=== PATIENT | female | born 2005 | race Asian ===

== ENCOUNTER 2024-10-16 06:34 | Outpatient (REF) | payer OTHER, SELFPAY ==
--- OUTSIDE RECORDS SUMMARY | 2024-10-16 06:37 | XMS_ITS | Data Portability ---
Author Organization [place] - [facility] Address [address] [place] [address] Care Team Providers Care Weight Count Operator Name Role Phone SABIHA ZACARIAS Primary Care Provider Unavailabl e Assessment Encounter Date Assessment Date Assessment LastModified by Organization Details LastModified Time 06/18/2022 06/18/2022 Agree with kash-Max Livingston M.D. [email or web address] Not available 06/18/2022 23:29:27 06/27/2023 06/27/2023 I was present in the office at the time of visit. History and physical reviewed. Agree that the assessment and plan below is reasonable. Jesus Zacarias MD [email or web address] Not available 06/28/2023 09:14:03 07/13/2024 07/13/2024 Agree with Reta Livingston M.D. Not available 07/14/2024 07:29:56 Plan of Treatment Reminders Order Date Submit Date Provider Last Modified By Organization Details Last Modified Time Details Appointments Physical3 0 2025 03:30P M Amy Cronin N.P. Not available Not available Not available Lab Chlamydia trachomat is+Neisse ika gonorrhoe ae DNA, unspecifi ed specimen [address] - Lab, [address] [place] [address], [id number], 07/20/2024 09:03:42 lipid panel, serum 2023 024 [facility] - Lab, [address] [place] [address] [place], [address], 07/04/2023 14:08:12 HbA1c (hemoglob in A1c), blood 2023 024 [facility] - Lab, [address] [place] [address] [place], [address], 07/04/2023 14:08:52 TSH, serum, reflex free T4 2023 024 [facility] - Lab, [address] [place] [address], [id number], 07/04/2023 14:08:13 CBC 2023 024 [facility] [place] [facility], [address] [place], [address], 06/27/2023 15:54:40 Chlamydia trachomat is+Neisse kia gonorrhoe ae DNA, unspecifi ed specimen 2023 024 [facility] [place] [facility], [address] [place], [address], 06/27/2023 15:29:50 lipid panel, serum 2022 023 [facility] Lab, [address] [place] [address], [address], 06/29/2022 11:10:33 CBC w/ auto diff 2022 023 [facility] - Lab, [address] [place] [address], [id number], 06/29/2022 11:10:34 Referral None recorded. Procedures None recorded. Surgeries None recorded. Imaging None recorded. Medication Orders None recorded. Patient TargetsNo targets recorded. Patient Instructions Encounter Date Encounter Id Patient Instructions Last Modified By Organization Details Last Modified Time 06/22/2022 [id number] venous blood draw* [facility] Not available 06/22/2022 13:09:00 06/27/2023 [id number] venous blood draw* jjoaquin Not available 06/27/2023 15:54:22 Reason for Referral None Reported. Results Created Date Observation Date Name Description Value Unit Range Abnormal Flag Note LastModifiedBy Organization Detail LastModifiedTime 06/22/1906/22/2022 CBC & DIFF WBC 8.19 K/uL 4.00-1 1.00 Not Available [facility] [address] [place], [address], 06/22/2022 16:59:53 06/22/19 23 06/22/2022 CBC & DIFF RBC 4.84 M/uL 4.00-5 .20 Not Available [facility] [address] [place], [address], 06/22/2022 16:59:53 06/22/19 23 06/22/2022 CBC & DIFF HGB 14.5 g/dL 12.0-1 6.0 Not Available [facility] [address] [place], [address], 06/22/2022 16:59:53 06/22/1906/22/2022 CBC & DIFF HCT 45.5 % 36.0-4 6.0 Not Available [facility] [address] [place], [address], 06/22/2022 16:59:53 06/22/1906/22/2022 CBC & DIFF plt 402 K/uL 150-45 0 Not Available [facility] [address] [place], [address], 06/22/2022 16:59:53 06/22/1906/22/2022 CBC & DIFF MCV 94.0 fL 80.0-1 00.0 Not Available [facility] [address] [facility] [place], [address], 06/22/2022 16:59:53 06/22/1906/22/2022 CBC & DIFF MCH 30.0 pg 27.0-3 1.0 Not Available [facility] [address] [place], [place] [address], [address], 06/22/2022 16:59:53 06/22/1906/22/2022 CBC & DIFF MCHC 31.9 g/dL 32.0-3 6.0 low Not Available [facility] [address] [place], [place] [address], [address], 06/22/2022 16:59:53 06/22/19 23 06/22/2022 CBC & DIFF RDW 11.6 % 11.5-1 4.5 Not Available [facility] [address] [place], [place] [address], [address], 06/22/2022 16:59:53 06/22/1906/22/2022 CBC & DIFF MPV 9.3 fL 8.4-12 .0 Not Available [facility] [address] [place], [place] [address] [place], [address], 06/22/2022 16:59:53 06/22/1906/22/2022 CBC & DIFF NRBC 0.00 /100_ WBCs 0.00-0 .20 Not Available [facility] [address] [place], [place] [address], [address], 06/22/2022 16:59:53 06/22/1906/22/2022 CBC & DIFF absolute NRBC 0.00 K/uL 0.00-0 .01 Not Available [facility] [address] [place], [place] [address], [address], 06/22/2022 16:59:53 06/22/1906/22/2022 CBC & DIFF diff method Auto Not Available [facility] [address] [place], [place] [address], [address], 06/22/2022 16:59:53 06/22/1906/22/2022 CBC & DIFF neuts 56.6 % 54.0-6 2.0 Not Available [facility] [address] [place] [address], [address], 06/22/2022 16:59:53 06/22/19 23 06/22/2022 CBC & DIFF lymphs 34.1 % 25.0-3 3.0 high Not Available [facility] [address] [place] [address] [place], [address], 06/22/2022 16:59:53 06/22/19 23 06/22/2022 CBC & DIFF monos 7.0 % 4.7-12 .0 Not Available [facility] [address] [place] [address], [address], 06/22/2022 16:59:53 06/22/19 23 06/22/2022 CBC & DIFF eos 1.5 % 0.0-3. 0 Not Available [facility] [address] [place] [address], [address], 06/22/2022 16:59:53 06/22/19 23 06/22/2022 CBC & DIFF basos 0.7 % 0.0-1. 0 Not Available [facility] [address] [place] [address], [address], 06/22/2022 16:59:53 06/22/19 23 06/22/2022 CBC & DIFF % immature grans 0.1 % 0.0-1. 0 Not Available [facility] [address] [place] [address], [address], 06/22/2022 16:59:53 06/22/19 23 06/22/2022 CBC & DIFF absolute neuts 4.64 K/uL 1.80-7 .00 Not Available [facility] [address] [place] [address], [address], 06/22/2022 16:59:53 06/22/19 23 06/22/2022 CBC & DIFF absolute lymphs 2.79 K/uL 1.00-4 .80 Not Available [facility] [address] [place], [place] [address]d[place], [address], 06/22/2022 16:59:53 06/22/19 23 06/22/2022 CBC & DIFF absolute monos 0.57 K/uL 0.20-1 .20 Not Available [facility] [address] [place], [place] [address], [address], 06/22/2022 16:59:53 06/22/19 23 06/22/2022 CBC & DIFF absolute eos 0.12 K/uL 0.05-0 .25 Not Available [facility] [address] [place], [place] [address], [address], 06/22/2022 16:59:53 06/22/19 23 06/22/2022 CBC & DIFF absolute basos 0.06 K/uL 0.00-0 .30 Not Available [facility] [address] [place], [place] [address], [address], 06/22/2022 16:59:53 06/22/19 23 06/22/2022 CBC & DIFF abs immature grans 0.01 K/uL 0.00-0 .10 Proce ssed and/o r perfo rmed at [address] [place] [address] Not Available [facility] [address] [place] [address], [address], 06/22/2022 16:59:53 06/22/19 23 06/22/2022 LIPID PANEL HDL 66 mg/dL >39 Not Available [facility] [address] [place] [address], [address], 06/22/2022 17:50:24 06/22/19 23 06/22/2022 LIPID PANEL cholesterol 238 mg/dL 0-200 high Not Available [facility] [address] [place] [address], [address], 06/22/2022 17:50:24 06/22/19 23 06/22/2022 LIPID PANEL triglyceride s 80 mg/dL 0-150 Not Available [facility] [address] [place], [address], 06/22/2022 17:50:24 06/22/19 23 06/22/2022 LIPID PANEL LDL 156 mg/dL <130 high REFER ENCE RANGE : Adult >= 18 years : - Heriberto able: <100 - Above heriberto able: 100-1 29 - Borde rline high: 130-1 59 - High: 160-1 89 - Very High: >=190 Pedia tric 2-17 years : - Accep table : <110 - Borde rline high: 110-1 29 - High: >=130 Refer ence range s have not been estab lishe d for patie nts that are less than 24 month s of age. Not Available [facility] [address] [place], [address], 06/22/2022 17:50:24 06/22/1906/22/2022 LIPID PANEL cardiac risk ratio 3.6 <5 Not Available [facility] [address] [place], [address], 06/22/2022 17:50:24 06/22/19 23 06/22/2022 LIPID PANEL non-HDL cholesterol 172 mg/dL Refer ence Range : The non-H DL Kalie stero l value shoul d not excee d the heriberto ed LDL-C by more than 30 mg/dl . Proce ssed and/o r perfo rmed at [address] [facility] [place] Not Available [facility] [address] [place], [address], 06/22/2022 17:50:24 06/22/1906/22/2022 venou s blood draw* In house venous lab draw 1 pst 1 lav gp Not Available [facility] [address] [place], [address], Ph [phone] 06/22/2022 09:13:01 12/24/1912/23/2022 LIPID PANEL HDL 62 mg/dL >39 Not Available [facility] [address] [place] [address], [address], 12/23/2022 18:44:52 12/24/1912/23/2022 LIPID PANEL cholesterol 242 mg/dL 0-200 high Not Available [facility] [address] [place] [address], [address], 12/23/2022 18:44:52 12/24/1912/23/2022 LIPID PANEL triglyceride s 105 mg/dL 0-150 Not Available [facility] [address] [place] [address], [address], 12/23/2022 18:44:52 12/24/1912/23/2022 LIPID PANEL LDL 159 mg/dL <130 high REFER ENCE RANGE : Adult >= 18 years : - Heriberto able: <100 - Above heriberto able: 100-1 29 - Borde rline high: 130-1 59 - High: 160-1 89 - Very High: >=190 Pedia tric 2-17 years : - Accep table : <110 - Borde rline high: 110-1 29 - High: >=130 Refer ence range s have not been estab lishe d for patie nts that are less than 24 month s of age. Not Available [facility] [address] [place] [address], [address], 12/23/2022 18:44:52 12/24/1912/23/2022 LIPID PANEL cardiac risk ratio 3.9 <5 Not Available [facility] [address] [place] [address], [address], 12/23/2022 18:44:52 12/24/1912/23/2022 LIPID PANEL non-HDL cholesterol 180 mg/dL Refer ence Range : The non-H DL Kalie stero l value shoul d not excee d the heriberto ed LDL-C by more than 30 mg/dl . Proce ssed and/o r perfo rmed at [address] [place] [address] Not Available [facility] [address] [place] [address] [place], [address], 12/23/2022 18:44:52 06/27/19 24 06/27/2023 SPECI MEN COMME NTS specimen status NO SPECIM EN RECEIV ED Not Available [facility] [address] [place] [address] [place], [address], 06/27/2023 16:36:54 06/27/19 24 06/27/2023 SPECI MEN COMME NTS tests ordered - HEMOG LOBIN A1C Proce ssed and/o r perfo rmed at [address] [place] [address] [place] Not Available [facility] [address] [place] [address] [place], [address], 06/27/2023 16:36:54 06/27/19 24 06/27/2023 LIPID PANEL HDL 77 mg/dL >39 Not Available [facility] [address] [place], [place] [address], [address], 06/27/2023 17:39:58 06/27/19 24 06/27/2023 LIPID PANEL cholesterol 311 mg/dL 0-200 high Not Available [facility] [address] [place] [address] [place], [address], 06/27/2023 17:39:58 06/27/19 24 06/27/2023 LIPID PANEL triglyceride s 105 mg/dL 0-150 Not Available [facility] [address] [place] [address], [address], 06/27/2023 17:39:58 06/27/19 24 06/27/2023 LIPID PANEL LDL 213 mg/dL <130 high REFER ENCE RANGE : Adult >= 18 years : - Heriberto able: <100 - Above heriberto able: 100-1 29 - Borde rline high: 130-1 59 - High: 160-1 89 - Very High: >=190 Pedia tric 2-17 years : - Accep table : <110 - Borde rline high: 110-1 29 - High: >=130 Refer ence range s have not been estab lishe d for patie nts that are less than 24 month s of age. Not Available [facility] [address] [place], [place] [address], [address], 06/27/2023 17:39:58 06/27/19 24 06/27/2023 LIPID PANEL cardiac risk ratio 4.0 <5 Not Available [facility] [address] [place] [address], [address], 06/27/2023 17:39:58 06/27/19 24 06/27/2023 LIPID PANEL non-HDL cholesterol 234 mg/dL Refer ence Range : The non-H DL Kalie stero l value shoul d not excee d the heriberto ed LDL-C by more than 30 mg/dl . Proce ssed and/o r perfo rmed at [address] [place] [address] Not Available [facility] [address] [place] [address], [address], 06/27/2023 17:39:58 06/27/19 24 06/27/2023 SCREE N PANEL : TSH screening panel: TSH 0.52 uIU/m L 0.34-5 .00 Proce ssed and/o r perfo rmed at [address] [place] [address] Not Available [facility] [address] [place] [address], [address], 06/27/2023 17:39:59 06/27/19 24 06/27/2023 SPECI MEN COMME NTS specimen status NO SPECIM EN RECEIV ED LE NIXON IED Not Available [facility] [address] [place] [address], [address], 06/29/2023 14:26:24 06/27/19 24 06/27/2023 SPECI MEN COMME NTS tests ordered - HEMOG LOBIN A1C Proce ssed and/o r perfo rmed at [address] [place] [address] Not Available [facility] [address] [place] [address], [address], 06/29/2023 14:26:24 06/27/19 24 06/27/2023 Chlam ydia trach omati s+Nei sseri a gonor rhoea e DNA, unspe cifie d speci men CT not detect ed not detect ed normal Not Available [facility] [address] [place], [address], 06/27/2023 11:03:57 06/27/19 24 06/27/2023 Chlam ydia trach omati s+Nei sseri a gonor rhoea e DNA, unspe cifie d speci men NG not detect ed not detect ed normal Not Available [facility] [address] [place], [address], 06/27/2023 11:03:57 06/27/19 24 06/27/2023 Chlam ydia trach omati s+Nei sseri a gonor rhoea e DNA, unspe cifie d speci men internal QC checks accept able Not Available [facility] [address] [place], [address], 06/27/2023 11:03:57 06/27/19 24 06/27/2023 Chlam ydia trach omati s+Nei sseri a gonor rhoea e DNA, unspe cifie d speci men 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 Not Available [facility] [address] [place], [address], 06/27/2023 11:03:57 06/27/19 24 06/27/2023 venou s blood draw* In house venous lab draw 1 lav 1 pst Not Available [facility] [address] [place], [address], 06/27/2023 11:08:26 06/27/19 24 06/27/2023 CBC white blood cells 5.75 10*3/ uL normal Not Available [facility] [address], [place], [address], 06/27/2023 10:46:19 06/27/19 24 06/27/2023 CBC red blood cells 4.85 10*6/ uL normal Not Available [facility] [address] [place], [address], 06/27/2023 10:46:19 06/27/19 24 06/27/2023 CBC hemoglobin 14.5 g/dL normal Not Avail able [facility] [address], [place], [address], 06/27/2023 10:46:19 06/27/19 24 06/27/2023 CBC hematocrit 45.4 % normal Not Avail able [facility] [address], [place], [address], 06/27/2023 10:46:19 06/27/19 24 06/27/2023 CBC mean corpuscular volume 93.6 fL normal Not Available [facility] [address], [place], [address], 06/27/2023 10:46:19 06/27/19 24 06/27/2023 CBC mean corpuscular hemoglobin 29.9 pg normal Not Available [facility] [address], [place], [address], 06/27/2023 10:46:19 06/27/19 24 06/27/2023 CBC mean corpuscular hemoglobin concentratio n 31.9 g/dL normal Not Available [facility] [address], [place], [address], 06/27/2023 10:46:19 06/27/19 24 06/27/2023 CBC platelets 363 10*3/ uL normal Not Available [facility] [address], [place], [address], 06/27/2023 10:46:19 06/27/19 24 06/27/2023 CBC erythrocytes distribution width SD 40.7 fL normal Not Available [facility] [address], [place], [address], 06/27/2023 10:46:19 06/27/19 24 06/27/2023 CBC erythrocytes distribution width CV 11.7 % normal Not Available [facility] [address], [place], [address], 06/27/2023 10:46:19 06/27/19 24 06/27/2023 CBC 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 Not Available [facility] [address], [place], [address], 06/27/2023 10:46:19 06/27/19 24 06/27/2023 CBC reference ranges for this test are based on age and gender. if you have any questions, please contact your provider for the appropriate reference ranges Not Available [facility] [address], [place], [address], 06/27/2023 10:46:19 05/17/20 24 05/18/2024 CHLAM YDIA/ GC PROBE specimen type Cervix /ThinP rep Proce ssed and/o r perfo rmed at [facility] [place] Janny[place] paulo,8 1 [facility] and [place] Not Available [facility] [address] [place], [address], 05/18/2024 11:27:52 05/17/20 24 05/18/2024 CHLAM YDIA/ GC PROBE C.trachomati s, amp PENDIN G chlamy crispin tracho matis (CT) DNA not detect ed Not Available [facility] [address] [place] [address] [place], [address], 05/18/2024 11:27:52 05/17/20 24 05/18/2024 CHLAM YDIA/ GC PROBE N.gonorrhoea e, amp PENDIN G neisse kia gonorr hoeae (NG) DNA not detect ed Not Available [facility] [address] [place], [address], 05/18/2024 11:27:52 05/17/20 24 05/18/2024 T. VAGIN CIRO PROBE specimen type Cervix /ThinP rep Proce ssed and/o r perfo rmed at [facility] paulo,8 1 [facility] [place] Not Available [facility] [address] [place], [address], 05/18/2024 11:27:53 05/17/20 24 05/18/2024 T. VAGIN CIRO PROBE trichomonas amp PENDIN G tricho monas vagina lis DNA not detect ed Not Available [facility] [address] [place] [address], [address], 05/18/2024 11:27:53 05/17/20 24 05/18/2024 T. VAGIN CIRO PROBE specimen type Cervix /ThinP rep Proce ssed and/o r perfo rmed at [facility],8 1 [facility] [place] Not Available [facility] [address] [place] [address], [address], 05/21/2024 13:29:17 05/17/20 24 05/18/2024 T. VAGIN CIRO PROBE trichomonas amp Negati ve negati ve [facility] Not Available [facility] [address] [place] [address], [address], 05/21/2024 13:29:17 05/17/20 24 05/18/2024 CHLAM YDIA/ GC PROBE specimen type Cervix /ThinP rep Proce ssed and/o r perfo rmed at [facility],8 1 [facility] and [place] Not Available [facility] [address] [place], [address], 05/21/2024 16:34:10 05/17/20 24 05/18/2024 CHLAM YDIA/ GC PROBE C.trachomati s, amp Negati ve negati ve Not Available [facility] [address] [place], [address], 05/21/2024 16:34:10 05/17/20 24 05/18/2024 CHLAM YDIA/ GC PROBE N.gonorrhoea e, amp Negati ve negati ve [facility] Not Available [facility] [address] [place], [address], 05/21/2024 16:34:10 07/13/19 25 07/13/2024 CHLAM YDIA/ GC PROBE specimen type URINE Proce ssed and/o r perfo rmed at [facility],8 1 [facility] and [place] Not Available [facility] [address] [place] [address] [place], [address], 07/13/2024 17:03:35 07/13/19 25 07/13/2024 CHLAM YDIA/ GC PROBE C.trachomati s, amp PENDIN G chlamy crispin tracho matis (CT) DNA not detect ed Not Available [facility] [address] [place], [address], 07/13/2024 17:03:35 07/13/19 25 07/13/2024 CHLAM YDIA/ GC PROBE N.gonorrhoea e, amp PENDIN G neisse kia gonorr hoeae (NG) DNA not detect ed Not Available [facility] [address] [place], [address], 07/13/2024 17:03:35 07/13/19 25 07/13/2024 CHLAM YDIA/ GC PROBE specimen type URINE Not Available [facility] [address] [place], [address], 07/17/2024 13:10:42 07/13/19 25 07/13/2024 CHLAM YDIA/ GC PROBE C.trachomati s, amp Negati ve negati ve Not Available [facility] [address] [place], [address], 07/17/2024 13:10:42 07/13/19 25 07/13/2024 CHLAM YDIA/ GC PROBE N.gonorrhoea e, amp Negati ve negati ve Proce ssed and/o r perfo rmed at [facility] paulo,8 1 [facility] [place] Not Available [facility] [address] [place], [address], 07/17/2024 13:10:42 Result Notes None recorded. Problems Name Problem SNOMED Code Status Onset Date Resolution Date Notes Provider Name and Address Organization Details Recorded Time Increase d body mass index 64251241 Active 2022 Amy Cronin N.P. [address] [place], [address], [facility] - [facility] 4 23:07:11 Irregula r periods 90349980 Active 2022 followed by METAL FINISH INSPECTOR Amy Cronin N.P. 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 [address] [place], [address], [facility] - [facility] 4 10:31:43 Moderate major depressi on, single episode 13659940 Active 2023 followed by psychiatr ist - Dr. Shelly Cronin N.PHoang [address] [place] [place], [address], [facility] - [facility] 4 10:34:15 Anxiety 46290492 Active 2023 Amy Guillenuin N.P. [address] [place], [address], [facility] - [facility] 4 23:11:02 Hypercho lesterol emia 16511382 Active 2023 followed by Cardiolog y at [facility] Amy Cronin N.PHoang [address] [place], [address], [facility] - [facility] 4 10:31:26 Abscess [id number] Completed 201006/18/2022 Plantar aspect left foot Amy Cronin N.P. [address] [place] [place], [address], [facility] - [facility] 3 16:37:12 Verruca plantari s 83954674 Active 2010 Plantar aspect left midfoot Amy Cronin N.P. [address] [place], [address], [facility] - [facility] 4 23:07:11 Alopecia areata 37277908 Active 2011 Amy Cronin N.P. [address] [place], [address], [facility] - [facility] 4 10:31:43 Myopia 60356586 Active 2012 Glasses 08/17/12 Dr Meza; 10/03/12 pt wears at [facility] only; Amy Cronin N.P. [address] [place], [address], [facility] - [facility] 0 18:07:14 Problem Notes None recorded. Medical Equipment None Reported. Allergies Allergen ID Allergen Name Allergen Category Reaction Reaction Severity Criticality Documentation Date Start Date Code Code System Note Provider Name and Address Organization Details Recorded Time 04613 minocycli ne medicatio n headache mild Not available 03/11/2020 6980 RxNorm pt denie s being aller gic, think s it was a side effec t of med Amy L. Mehrdad N.P. [address] [place], [address], [facility] - [facility] 3 16:01:32 79440 No known allergy (situatio n) Not available Not available Not available Not available 06/27/2023 70483 6003 SNOMED Amy L. Mehrdad N.P. [address] [place], [address], [facility] - [facility] 4 23:08:12 Medications Name Sig Start Date Stop Date Status Note LastModified by Organization Details LastModified Time fluoxetin e 40 mg capsule TAKE 2 CAPSULES BY MOUTH EVERY DAY active Not Available Not Available No t Available atorvasta tin 20 mg tablet 20mg 1/day active Not Available Not Available No t Available dextroamp hetamine sulfate 5 mg tablet TAKE 1 TABLET BY MOUTH EVERY DAY NEEDED 07/13 completed Not Available Not Available Not Available trazodone 50 mg tablet TAKE 1 TABLET BY MOUTH EVERY NIGHT AT BEDTIME NEEDED active Not Available Not Available No t Available valacyclo vir 1 gram tablet TAKE 1 TABLET BY MOUTH TWICE A DAY 07/13 completed Not Available Not Available Not Available sumatript an 100 mg tablet Take 1 tablet as needed by oral route as needed. 06/18 completed Not Available Not Available Not Available hydrocodo ne 5 mg-acetam inophen 325 mg tablet PLEASE SEE ATTACHED FOR DETAILED DIRECTIO NS 07/13 completed Not Available Not Available Not Available minocycli ne 100 mg capsule TAKE 1 CAPSULE BY MOUTH TWICE A DAY 05/13 completed Not Available Not Available Not Available fluoxetin e 10 mg tablet TAKE 1 TABLET BY MOUTH DAILY FOR 1 WEEK, THEN 2 TABLETS DAILY THEREAFT ER 06/27 completed Not Available Not Available Not Available prochlorp erazine maleate 10 mg tablet Take 1 tablet 3 times a day by oral route. 05/13 completed Not Available Not Available Not Available tretinoin 0.05 % topical cream APPLY TO AFFECTED AREA EVERY DAY AT BEDTIME 06/18 completed Not Available Not Available Not Available Zofran 4 mg tablet Take 1 tablet every 8 hours by oral route as needed. 05/13 completed Not Available Not Available Not Available propranol ol 10 mg tablet TAKE 1 TABLET BY MOUTH ONCE A DAY NEEDED FOR ANXIETY/ IRRITABI LITY active Not Available Not Available No t Available fluoxetin e 20 mg tablet TAKE 2 TABLETS BY MOUTH EVERY DAY 07/13 completed Not Available Not Available Not Available omeprazol e 20 mg capsule,d elayed release TAKE 1 CAPSULE BY MOUTH EVERY DAY 06/18 completed Not Available Not Available Not Available ammonium lactate 12 % topical cream APPLY TO AFFECTED AREA TOPICALL Y EVERY DAY 07/13 completed HN: Patient reports no longer taking Not Available Not Available Not Available ibuprofen 600 mg tablet TAKE 1 TABLET BY MOUTH EVERY 6 HOURS NEEDED FOR PAIN 07/13 completed Not Available Not Available Not Available ondansetr on 4 mg disintegr ating tablet TAKE 1 TABLET BY MOUTH EVERY 6 HOURS NEEDED FOR NAUSEA 05/13 completed Not Available Not Available Not Available fluoxetin e 20 mg capsule TAKE 1 CAPSULE BY MOUTH ONCE A DAY TAKE WITH 40MG CAP FOR TOTAL OF 60MG 07/13 completed Not Available Not Available Not Available betametha sone dipropion ate 0.05 % lotion APPLY TOPICALL Y AT NIGHTTIM E TO AFFECTED AREAS ON THE SCALP. 06/27 completed Not Available Not Available Not Available sertralin e 50 mg tablet TAKE 1.5 TABLET(S ) EVERY DAY BY ORAL ROUTE FOR 30 DAYS. 10/04 completed Not Available Not Available Not Available amoxicill in 875 mg-potass ium clavulana te 125 mg tablet TAKE 1 TABLET BY MOUTH TWICE A DAY 07/13 completed Not Available Not Available Not Available clindamyc in 1 % lotion APPLY THIN COAT TO AFFECTED AREA TWICE A DAY 06/18 completed Not Available Not Available Not Available erythromy elizabeth with ethanol 2 % topical gel Apply to affected areas BID 10/04 completed Not Available Not Available Not Available June FE 06/18 (28) 1 mg-20 mcg (21)/75 mg (7) tablet TAKE 1 TABLET BY MOUTH EVERY DAY 06/27 completed Not Available Not Available Not Available erythromy elizabeth with ethanol 2 % topical solution Apply 1 applicat ion twice a day by topical route. 06/18 completed Not Available Not Available Not Available nitrofura ntoin monohydra te/macroc rystals 100 mg capsule TAKE 1 CAPSULE ORAL TWICE A DAY DIRECTED TAKE FOR 7 DAYS 07/13 completed Not Available Not Available Not Available chlorhexi dine gluconate 0.12 % mouthwash SWISH AND SPIT 15 ML IN THE MOUTH OR THROAT DIRECTED TWICE A DAY 07/13 completed Not Available Not Available Not Available fluoxetin e 80 mg 1/day 07/13 completed Not Available Not Available Not Available Marcus Pads 2 % topical swab APPLY OVER THE AFFECTED AREAS TWICE A DAY. 10/04 completed Not Available Not Available Not Available minoxidil 5 % topical foam 06/27 completed Not Available Not Available Not Available Nexplanon 68 mg subdermal implant Inject by subcutan eous route. 06/27 completed December 2021 Not Available Not Available Not Available BP Wash 10 % topical cleanser WASH THE AFFECTED AREA(S) BY TOPICAL ROUTE ONCE DAILY 06/18 completed Not Available Not Available Not Available Olumiant 2 mg tablet active Not Available Not Available Not Available baricitin ib BARICITI NIB 1/day 07/13 completed Not Available Not Available Not Available Slynd 4 mg (28) tablet TAKE 1 TABLET BY MOUTH EVERY DAY active Not Available Not Available No t Available Vitals Date Recorded Body weight Body mass index (BMI) Percentile per age and sex Body mass index (BMI) Body height Systolic blood pressure Diastolic blood pressure Provider Name and Address Organization Details Last Updated DateTime 3 11634.3 6 g 96 % 32.6 kg/m2 160.02 cm 116 mm[Hg] 78 mm[Hg] Nimco Eric [place] - [facility] 3 15:32:52 Date Recorded Body height Body mass index (BMI) Body mass index (BMI) Percentile per age and sex Body weight Systolic blood pressure Diastolic blood pressure Provider Name and Address Organization Details Last Updated DateTime 4 160.02 cm 34 kg/m2 96 % 47841.7 9 g 122 mm[Hg] 78 mm[Hg] Isabella Galindolinda [place] - [facility] 4 09:53:38 Date Recorded Body weight Body mass index (BMI) Body height Systolic blood pressure Diastolic blood pressure Provider Name and Address Organization Details Last Updated DateTime 07/13/2024 59174.72 g 34.5 kg/m2 160.02 cm 122 mm[Hg] 78 mm[Hg] Ángel Valle [place] - [facility] 5 09:26:30 Social History Question Answer Notes LastModified by Organizat ion Details LastModified Time Tobacco Smoking Status Never Smoker Not Available Health Note 07/09/2024 12:09:59 Do You Wear A Helmet When Biking? Yes [email or web address] Information not available 07/09/2024 Are You Blind Or Do You Have Difficulty Seeing? No [email or web address] Information not available 07/09/2024 What Is Your Level Of Caffeine Consumption? Occasional Soda kshirikyan Information not available 12/27/2017 Are You Deaf Or Do You Have Serious Difficulty Hearing? No [email or web address] Information not available 07/09/2024 What Type Of Diet Are You Following? REGULAR [email or web address] Information not available 07/09/2024 What Is The Highest Grade Or Level Of School You Have Completed Or The Highest Degree You Have Received? [id number] [email or web address] Information not available 07/09/2024 Who Is Your Employer? [employer] [email or web address] Information not available 07/09/2024 How Many Days Of Moderate To Strenuous Exercise, Like A Brisk Walk, Did You Do In The Last 7 Days? 1 [email or web address] Information not available 07/09/2024 Have There Been Any Changes To Your Family Or Social Situation? No [email or web address] Information no t available 07/09/2024 What Is The Fluoride Status Of Your Home? Unknown [email or web address] Information not available 07/09/2024 Are There Any Guns Present In Your Home? No [email or web address] Information not available 07/09/2024 What Is Your Home Situation? Both Parents Information not available 01/11/2017 Do You Use Insect Repellent Routinely? No [email or web address] Information not available 07/09/2024 Is The Patient Getting Regular Fluoride Varnish Application From The Dentist? Yes [email or web address] Information not available 07/09/2024 What Is The Name Of The Patients' Dentist? Dr. Candace Henley [email or web address] Information not available 07/09/2024 Are There Any Occupational Health Risks Where You Work? Exposure To Various Diseases [email or web address] Information not available 07/09/2024 What Is Your Parents' Marital Status? Information not available 01/11/2017 Do You Have Any Pets? Yes [email or web address] Information not available 07/09/2024 Do You Use Protection During Sex? Usually [email or web address] Information not available 07/09/2024 What Is Your Relationship Status? Single [email or web address] Information not available 07/09/2024 What Is The Name Of Your School? [employer] [email or web address] Information not available 07/09/2024 Do You Use Your Seat Belt Or Car Seat Routinely? Yes [email or web address] Information not available 07/09/2024 Are You Sexually Active? Yes [email or web address] Information not available 07/09/2024 Do You Have Any Siblings? 1 [email or web address] Information not available 07/09/2024 Do You Have Smoke And Carbon Monoxide Detectors In Your Home? Yes [email or web address] Information not available 07/09/2024 Are You Passively Exposed To Smoke? No [email or web address] Information no t available 07/09/2024 Do You Participate In Social Media? Yes [email or web address] Information not available 07/09/2024 What Types Of Sporting Activities Do You Participate In? Occasional Gym [email or web address] Information not available 07/09/2024 Do You Use Sunscreen Routinely? Yes [email or web address] Information not available 07/09/2024 Do You Have Difficulty Walking Or Climbing Stairs? No [email or web address] Information not available 07/09/2024 Are You Currently In School? Yes [email or web address] Information not available 07/09/2024 Sex: Female Functional Status Question Answer Note LastModified by Organizat ion Details LastModified Time Do you use any illicit or recreational drugs? No [email or web address] Information not available 07/09/2024 Do you or have you ever used any other forms of tobacco or nicotine? No [email or web address] Information not available 07/09/2024 What is your level of alcohol consumption? Occasional [email or web address] Information not available 07/09/2024 Are you currently employed? Yes [email or web address] Information not available 07/09/2024 Are you able to walk? YESWOREST [email or web address] Information not available 07/09/2024 Are you able to care for yourself? Yes [email or web address] Information n ot available 07/09/2024 Do you have difficulty dressing or bathing? No [email or web address] Information not available 07/09/2024 What is your exercise level? Occasional [email or web address] Information not available 07/09/2024 Mental Status Question Answer Note LastModified by Organizat ion Details LastModified Time Do you feel stressed (tense, restless, nervous, or anxious, or unable to sleep at night)? [id number] [email or web address] Information not available 07/09/2024 Do you have difficulty concentrating, remembering or making decisions? No [email or web address] Information no t available 07/09/2024 Are you or have you been involved with bullying? Yes Information not available 01/11/2017 Family History Relationship Description Onset Age of this Age Resolved Age Notes LastModified by Organization Details LastModified Time Paternal Grandfather Diabetes mellitus Not available 2016 13:06:40 Paternal Grandfather Hypertensive disorder [email or web address] Not available 2024 12:09:57 Paternal Grandfather Hypercholest erolemia [email or web address] Not available 2024 12:09:57 Maternal Grandmother Hypertensive disorder Not available 2016 13:06:40 Maternal Grandmother Family history of malignant neoplasm [email or web address] Not available 2024 12:09:57 Maternal Grandmother Malignant neoplasm of ovary [email or web address] Not available 2024 12:09:57 Father Allergy Not available 13:06:40 Father Hypercholest erolemia [email or web address] Not available 2024 12:09:57 Mother Hypertensive disorder Not available 2016 13:06:40 Mother Hypercholest erolemia [email or web address] Not available 2024 12:09:57 Maternal Grandfather Diabetes mellitus Not available 2016 13:06:40 Maternal Grandfather Hypertensive disorder Not available 2016 13:06:40 Maternal Grandfather Arthritis Not available 12/28 13:06:40 Maternal Grandfather Hypercholest erolemia [email or web address] Not available 2024 12:09:57 Paternal Grandmother Hypertensive disorder Not available 2016 13:06:40 Paternal Grandmother Hypercholest erolemia [email or web address] Not available 2024 12:09:57 Unspecified Relation Alzheimer's disease [email or web address] Not available 2024 12:09:57 Unspecified Relation Dementia [email or web address] Not available 07/09/19 12:09:57 Unspecified Relation Cerebrovascu lar accident [email or web address] Not available 02/2025 12:09:57 Brother Depressive disorder Depres tammy [email or web address] Not available 07/09/2024 12:09:57 Medical History Condition Response High Blood Pressure N Anemia/Blood Disorders N Thyroid Problems N Developmental Delay N Celiac Disease N Migraine Headaches N Convulsive Disorder/Epilepsy N AIDS/ARC/HIV Positive N Peptic Ulcer/Colitis/Irritable Bowel N Kidney Problem/Infection/Malformation N Heart/Valve Trouble N Chromosomal Abnormality N Seasonal Allergies Y Alcoholism N Cystic Fibrosis N Eye Disease/Glaucoma N Diabetes N Tuberculosis N Congenital Hearing Loss N Stroke N Cancer or Malignacy N Asthma N Hepatitis/Gall Bladder Disease N Muscular Dystrophy N Defects N Sickle Cell Disease N Food Allergies N Obesity/Overweight Y Gynecological History Statement/Question Response Menses Monthly Y Duration of Flow (days) 6 Age at Menarche 9 Date of LMP 06/27/2023 Sexually Active? Y Obstetrics History GPAL:G 0 P 0 0 0 0 Immunizations Vaccine Type Date Status Note Provider Nam e and Address Organization Details Recorded Time COVID-19, mRNA, LNP-S, bivalent, PF, 30 mcg/0.3 mL dose 2 completed Amy L. Mehrdad N.P. [address] [place], [address], [facility] - [facility] 06/27/2023 23:07:05 Influenza, split virus, quadrivalent, PF 2 completed Amy L. Mehrdad N.P. [address] [place], [address], [facility] - [facility] 06/27/2023 23:07:05 Influenza, split virus, quadrivalent, PF 1 completed Amy L. Mehrdad N.P. [address] [place], [address], [facility] - [facility] 06/27/2023 23:07:05 Influenza, split virus, quadrivalent, PF 9 completed Amy L. Mehrdad N.P. [address] [place], [address], [facility] - [facility] 06/27/2023 23:07:05 Influenza, split virus, quadrivalent, PF 0 completed Amy L. Mehrdad N.P. [address] [place], [address], [facility] - [facility] 06/27/2023 23:07:05 COVID-19, mRNA, LNP-S, PF, 100 mcg/0.5mL dose or 50 mcg/0.25mL dose 1 completed Amy L. Mehrdad N.P. [address] [place], [address], [facility] - [facility] 07/12/2024 23:31:25 Influenza, split virus, quadrivalent, PF 3 completed Amy L. Mehrdad N.P. [address] [place], [address], [facility] - [facility] 07/12/2024 23:31:26 Hep B, adult 3 completed Amy L. Mehrdad N.P. [address] [place], [address], [facility] - [facility] 07/13/2024 10:24:14 Influenza, split virus, trivalent, PF 4 completed Amy LHoang Mehrdad N.P. [address] [place], [address], [facility] - [facility] 07/12/2024 23:29:21 COVID-19, mRNA, LNP-S, PF, zenon-sucrose, 30 mcg/0.3 mL 4 completed Amy LHoang Mehrdad N.P. [address] [place], [address], [facility] - [facility] 07/13/2024 10:24:14 meningococcal B, OMV 0 completed Sabiha Zacarias MD [address] [place], [address], [facility] - [facility] 03/11/2020 16:50:18 meningococcal B, OMV 1 completed Jennifer maya, [place] - [facility] 09/09/2020 15:37:28 Influenza, split virus, quadrivalent, PF 7 completed Not Available [facility] 06/16/2019 02:17:06 Tdap 5 completed Max Livingston MD [address] [place], [address], [facility] - [facility] 07/14/2024 07:27:19 HPV9 8 completed Not Available [facility] 06/16/2019 02:17:27 HPV9 9 completed Not Available [facility] 06/16/2019 02:18:06 meningococcal MCV4P 9 completed Not Available [facility] 06/16/2019 02:18:08 TST-PPD intradermal 4 completed Amy Pimentel Mehrdad N.P. [address] [place], [address], [facility] - [facility] 06/27/2023 23:07:05 pneumococcal conjugate PCV 7 4 completed Aym Margarito Mehrdad N.P. [address] [place], [address], [facility] - [facility] 06/18/2022 16:02:31 influenza, unspecified formulation 4 completed Not Available [facility] 03/02/2017 06:28:26 Hib, unspecified formulation 3 completed Not Available [facility] 03/02/2017 06:28:26 MMR 4 completed Amy L. Mehrdad N.P. [address] [place], [address], [facility] - [facility] 07/13/2024 10:24:14 influenza, unspecified formulation 5 completed Not Available [facility] 03/02/2017 06:28:27 MMR 6 completed Amy LHoang Mehrdad N.P. [address] [place], [address], [facility] - [facility] 07/13/2024 10:24:14 influenza, unspecified formulation 6 completed Not Available [facility] 03/02/2017 06:28:28 influenza, unspecified formulation 7 completed Not Available [facility] 03/02/2017 06:28:28 Hep B, unspecified formulation 4 completed Not Available [facility] 03/02/2017 06:28:29 Hep B, unspecified formulation 4 completed Amy L. Mehrdad N.P. [address] [place], [address], [facility] - [facility] 07/13/2024 10:24:14 Hep B, unspecified formulation 4 completed Amy L. Mehrdad N.P. [address] [place], [address], [facility] - [facility] 07/13/2024 10:24:14 DTaP, unspecified formulation 3 completed Not Available [facility] 03/02/2017 06:28:30 DTaP, unspecified formulation 3 completed Not Available [facility] 03/02/2017 06:28:30 DTaP, unspecified formulation 3 completed Not Available [facility] 03/02/2017 06:28:31 DTaP, unspecified formulation 5 completed Not Available [facility] 03/02/2017 06:27:41 Hib, unspecified formulation 3 completed Not Available [facility] 03/02/2017 06:27:41 Hib, unspecified formulation 3 completed [facility] Available [facility] 03/02/2017 06:27:42 Hib, unspecified formulation 4 completed Not Available [facility] 03/02/2017 06:27:42 polio, unspecified formulation 3 completed Not Available [facility] 03/02/2017 06:27:43 polio, unspecified formulation 3 completed Not Available [facility] 03/02/2017 06:27:43 polio, unspecified formulation 3 completed Not Available [facility] 03/02/2017 06:27:44 polio, unspecified formulation 4 completed Not Available [facility] 03/02/2017 06:27:45 varicella 4 completed Amy Cronin N.P. [address] [place], [address], [facility] - [facility] 07/13/2024 10:24:14 varicella 8 completed Amy Cronin N.P. [address] [place], [address], [facility] - [facility] 06/18/2022 16:02:31 DTaP, unspecified formulation 8 completed Not Available [facility] 03/02/2017 06:27:46 polio, unspecified formulation 8 completed Not Available [facility] 03/02/2017 06:27:47 influenza, unspecified formulation 8 completed [facility] 03/02/2017 06:27:47 influenza, unspecified formulation 9 completed Not Available [facility] 03/02/2017 06:27:48 influenza, unspecified formulation 0 completed Not Available [facility] 03/02/2017 06:27:48 influenza, unspecified formulation 1 completed Not Available [facility] 03/02/2017 06:27:49 Influenza, split virus, trivalent, PF 2 completed Not Available [facility] 11/12/2016 12:43:47 TST-PPD intradermal 2 completed Amy L. Mehrdad N.P. [address] [place], [address], [facility] - [facility] 06/27/2023 23:07:05 Influenza, split virus, trivalent, PF 3 completed Not Available [facility] 11/12/2016 12:43:48 Tdap 5 completed Amy L. Mehrdad N.P. [address] [place], [address], [facility] - [facility] 07/13/2024 10:24:14 meningococcal MCV4P 5 completed Not Available [facility] 11/12/2016 12:43:49 Influenza, live, quadrivalent, intranasal 5 completed Amy L. Mehrdad N.P. [address] [place], [address], [facility] - [facility] 07/12/2024 23:31:26 influenza, unspecified formulation 6 completed Not Available [facility] 03/02/2017 06:27:52 COVID-19, mRNA, LNP-S, PF, 30 mcg/0.3 mL dose 1 completed Amy L. Mehrdad N.P. [address] [place], [address], [facility] - [facility] 07/12/2024 23:31:25 COVID-19, mRNA, LNP-S, PF, 30 mcg/0.3 mL dose 1 completed Amy L. Mehrdad N.P. [address] [place], [address], [facility] - [facility] 07/12/2024 23:31:25 BCG 3 completed Amy Cronin N.PHoang [address] [place], [address], [facility] - [facility] 06/27/2023 23:07:05 Past Encounters Encounter ID Performer Location Encounter Start Date Encounter Closed Date Diagnosis/Indication Diagnosis SNOMED-CT Code Diagnosis ICD10 Code Diagnosis Note [id number] Amy Cronin N[address]P. [address] [place] [address] 05/16/2014 09:38:15 05/16/2014 11:42:31 Viral disease [id number] Sabiha Zacarias MD [address] [place] [address] [place] [address] 12/17/2013 08:40:24 12/17/2013 09:38:46 Well child [id number] Sabiha Zacarias MD [address] [place] [address] [place] [address] 05/09/2014 13:16:41 05/09/2014 13:54:56 Viral disease [id number] Sabiha Zacarias MD [address] [place], [place] [address] [place] [address] 12/23/2014 13:23:11 12/23/2014 15:10:25 Well child [id number] Sabiha Zacarias MD [place] [address] [address] 01/21/2015 08:53:14 01/21/2015 11:44:15 [facility] [id number] MD [facility] [facility] [address] [place] [address] 06/23/2015 15:48:11 06/23/2015 16:56:00 Irregular intermenstrual bleeding [id number] Alopecia areata [id number] Acne [id number] MD Alek Warner ediatric Associate s of [facility] [address] [place] [address] 12/25/2015 09:45:19 12/25/2015 10:57:43 Well child [id number] FLU [place] [address] [place] [address] 04/28/2015 14:45:20 04/28/2015 15:33:14 Infective hepatitis immunization [id number] MD Alisa Forte-P ediatric Associate s of [place] [address] [place] [address] 11/05/2015 09:08:59 11/05/2015 09:51:05 Headache [id number] Follow-up encounter [id number] Nurse [place] of [address] [address] 04/06/2012 15:18:15 04/06/2012 16:11:29 BCG vaccination [id number] Nurse [place] of [address] [place] [address] 04/08/2012 10:41:07 04/08/2012 11:00:25 Tuberculosis screening [id number] Nurse [place] of [address] [place] [address] 04/20/2013 15:10:48 04/20/2013 16:00:11 Influenza vaccine needed [id number] 106 [id number] Sabiha Zacarias MD [place] [address] [address] 01/11/2017 12:37:47 01/11/2017 13:39:54 Well child 898007198 Z00.129 [id number] Sabiha Zacarias MD [place] of [address] [place] [address] 05/10/2017 14:12:46 05/10/2017 15:44:44 Influenza vaccine needed [id number] 106 Z23 [id number] Max Livingston MD [place] [address] [place] [address] 08/18/2017 08:58:50 08/22/2017 09:43:15 Depressive disorder 47250869 F32.1 Call insurance to see if they will cover gene-sight Continue therapyRec ommended Yoga or self relaxing activities Start Zoloft 25mg at bedtime for 2 weeks then incr to 50Discusse d the benefits of the Partial ProgramDis cussed risks and benefits of medication RTC 3 mo for med recheck/pr nSupportiv e careCall office if incr/worse raffy sx's Irregular periods 395597 07 N92.6 [id number] MD Dona Warner iatric Associate s of [address] [address] 09/15/2017 11:25:20 09/15/2017 14:24:54 Depressive disorder 98233593 F32.1 Increase dose of Zoloft to 75 mg dailyConti nue with counseling Sleeping and dose times discussed Acne 15984408 L70.9 [id number] MD Dona Warner iatric Associate s of [address] [address] 12/27/2017 14:54:01 12/27/2017 16:05:35 Well child 058733275 Z00.129 Depressive disorder 3548 9007 F32.1 Continue Zoloft at 100 mg daily, may consider taper next summerDisc ussed with momMelaton in use discussedC ontinue with counseling Sleeping and dose times discussed Acne 12537849 L70.9 Skin care discussedC ontinue topical treatments Start minocin for back acne, risks of sun sensitivit y discussed [id number] MD Dona Andrews iatric Associate s of [address] [address] 10/04/2018 13:16:02 10/04/2018 15:06:06 Backache 682951411 M54.9 -referral to PT for treatment- motrin, rest, ice/heat prn-f/u ortho sx persisting despite treatment [id number] MD Dona Warner iatric Associate s of [address] [address] 01/30/2019 15:17:27 01/31/2019 07:24:53 Well child 030170414 Z00.129 Well-appea ring adolescent presents for {{16* 17 1 8}}-year WCC. Developing well. Assessed vision and hearing risk factors, {{no concern* c oncerns as follows:}} . Administer ed depression screening, {{no concerns* concerns as follows:}} . Assessed anemia risk, {{no need for* will order}} hematocrit /hemoglobi n today. Assessed TB risk factors, {{no need for* will order}} PPD today. Assessed dyslipidem ia risk factors, {{no need for* will order}} screen today. STI panel: {{will order today will order at next visit* ord ered at previous visit}}. {{Will give immunizati ons as below* No need for immunizati ons today}}.Co unseling regarding vaccines scheduled for today - reviewed all vaccines in detail including indication s, risks, benefits, and possible side effects. VIS sheets distribute d. Parent consented to all vaccines. Anticipato ry guidance discussed and provided as below, including appropriat e nutrition and activity, mental health, sexual activity, and tobacco, alcohol, and drug use. Follow up as scheduled for next WC, sooner if any new concerns or symptoms. Influenza vaccine needed [id number] 106 Z23 Acne 51391008 L70.9 Skin care discussedC ontinue topical treatments Start minocin for back acne, risks of sun sensitivit y discussed [id number] MD Alisa Warner-P ediatric Associate s of [facility] [address] [place] [address] 12/24/2019 09:33:44 12/27/2019 09:28:09 Pins and needles 63855715 R20.2 ---> pins and needles sensation in her arms, also getting HAs with vomiting and nausea, ? migraine-s trep and COVID-19 PCR negative today-take tylenol or ibuprofen for GEORGE-push fluids -referral to neurology for further evaluation -Call/RTC if symptoms worsen, fever, or any other concerns -Limitatio ns of evaluation via drive-up appt have been reviewed with the patient/fa micky Headache 66719223 R51 -referral to neurology as above-advi sed to wear glasses Nausea 962484865 R11.0 ----> ? related to HAs (migraine) or due to acid reflux-con t omeprazole QAM x 30 days-call/ RTC if sxs persist/wo rsen [id number] MD Dona Warner iatric Associate s of [address] [address] 03/11/2020 15:49:39 03/12/2020 07:31:38 Well child 121705836 Z00.129 Well-appea ring adolescent presents for {{16 17* 1 8}}-year C. Developing well. Assessed vision and hearing risk factors, {{no concern* c oncerns as follows:}} . Administer ed depression screening, {{no concerns* concerns as follows:}} . Assessed anemia risk, {{no need for* will order}} hematocrit /hemoglobi n today. Assessed TB risk factors, {{no need for* will order}} PPD today. Assessed dyslipidem ia risk factors, {{no need for* will order}} screen today. STI panel: {{will order today* anmol l order at next visit orde red at previous visit}}. {{Will give immunizati ons as below* No need for immunizati ons today}}.Co unseling regarding vaccines scheduled for today - reviewed all vaccines in detail including indication s, risks, benefits, and possible side effects. VIS sheets distribute d. Parent consented to all vaccines. Anticipato ry guidance discussed and provided as below, including appropriat e nutrition and activity, mental health, sexual activity, and tobacco, alcohol, and drug use. Follow up as scheduled for next [facility], sooner if any new concerns or symptoms. Influenza vaccine needed [id number] 106 Z23 Acne 99293515 L70.9 Skin care discussedC ontinue topical treatments Continue minocin for back acne, risks of sun sensitivit y discussed Migraine 31155217 G43.90 9 F/u with neurologis t discussedC ontinue 100 mg sumatripta n and zofran prn Overweight 929845928 E66 .3 [id number] MD Dona Warner iatric Associate s of [address] [address] 09/09/2020 15:30:10 09/12/2020 11:06:31 Active or passive immunization 358495381 Z23 [id number] MD Dona Warner i[facility]ric Associate s of [address] [address] 12/30/2020 08:47:38 12/30/2020 11:35:14 Well child visit 897507515 Z76.2 [id number] MD Alisa Warner-P ediatric Associate s of [facility] [address] [place] [address] 05/13/2021 10:51:14 05/19/2021 14:42:29 Adult health examination 930290310 Z00.00 Mental health and well-being discussed, continue with counseling Periods discussed and normal irregulari ty in college. Call if not improving and will check labs. Well-appea ring adolescent presents for {{16 17 18 *}}-year [facility]. Developing well. Assessed vision and hearing risk factors, {{no concern* c oncerns as follows:}} . Administer ed depression screening, {{no concerns c oncerns as follows:*} }. Assessed anemia risk, {{no need for* will order}} hematocrit /hemoglobi n today. Assessed TB risk factors, {{no need for* will order}} PPD today. Assessed dyslipidem ia risk factors, {{no need for* will order}} screen today. STI panel: {{will order today* anmol l order at next visit orde red at previous visit}}. {{Will give immunizati ons as below* No need for immunizati ons today}}.Co unseling regarding vaccines scheduled for today - reviewed all vaccines in detail including indication s, risks, benefits, and possible side effects. VIS sheets distribute d. Parent consented to all vaccines. Anticipato ry guidance discussed and provided as below, including appropriat e nutrition and activity, mental health, sexual activity, and tobacco, alcohol, and drug use. Follow up as scheduled for next WC, sooner if any new concerns or symptoms. Active or passive immunization 045829840 Z23 [id number] MD Dona Forte iatric Associate s of [address] [address] 06/18/2022 15:17:46 06/28/2022 11:37:25 Adult health examination 603951708 Z00.00 -BP WNL today-RTC in 1 year for next PE Hypercholesterolemia 136 12208 E78.00 -lipid panel last checked 12/2020-RT C for fasting lipid panel within the next 2 weeks (before going back to college) Irregular periods 308204 N92.6 -is followed by [employer] [facility]PECT[facility], is being worked up for PCOS Break-thro ugh bleeding 01756283 N92.1 ---> s/p nexplanon- f/u [employer] INSPECTOR-defers GC/C screen today Increased body mass index 69949136 Z68.32 -encourage d to increase physical activity and improve diet Mixed anxi ety and depressive disorder 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 Cronin, injections and topical meds as rx'd [id number] MD Martinez [facility] of [address] [address] 06/22/2022 08:47:19 06/22/2022 15:22:15 Hypercholesterolemia 87132669 E78.00 [id number] MD Krystin [facility]-Ped [facility] Associate [facility] of [address] [address] 12/23/2022 08:37:39 01/18/2023 03:46:17 [id number] MD Alisa Warner-P ed[facility] Associate [facility] of [place] [address] [place] [address] 06/27/2023 09:47:25 06/28/2023 15:28:15 Adult health examination 193583338 Z00.00 -check fasting labs as below-RTC in 1 year for next PE, sooner as needed Hypercholesterolemia 136 34992 E78.00 -fasting lipid panel pending Irregular periods 053016 N92.6 -is followed by [employer] INSPECTOR, not currently on hormonal medication Increased body mass index 27157538 Z68.32 ---> BMI = 34-encoura ged to increase physical activity and improve diet Alopecia areata 15549581 L63.9 -f/u dermatolog y --> Dr. Chante chu, plans to start new meds soon, ? a biologic Moderate m ajor depression, single episode 87292700 F32.1 ----> PHQ9 = 12, indicative of moderate sxs; pt report's her sxs are much better than previous, this past fall took a medical leave from college due to depression sxs-cont to see psychiatri st for medication management , currently on prozac 40 mg-cont to see therapist on a regular basis-will cont to monitor Anxiety 14043299 F41.9 GAD7 = 7, indicative of mild anxiety sxs-plan as above 4904219 Max Livingston MD [place] [address] [address] 07/13/2024 09:16:34 07/18/2024 15:29:21 Adult health examination 577911575 Z00.00 -discussed potential risks, benefits and side effects of vaccinatio ns, all questions asked and answered, parent voices understand ing-RTC in 1 year for next PE, sooner as needed-dis cussed transition to adult PCP at age 22 Increased body mass index 00388950 Z68.32 ---> BMI = 34.5-encou raged to increase physical activity and improve diet Hypercholesterolemia 136 39794 E78.00 -f/u cardiology , cont atorvastat in as rx'd Irregular periods 943902 07 N92.6 -f/u [employer], cont OCP as rx'd Alopecia areata 14456474 L63.9 -f/u dermatolog y --> Dr. Chante chu, cont medication as rx'd by derm (is currently on a new medication - Olumiant) Moderate m ajor depression, single episode 78714602 F32.1 ----> PHQ9 = 4, negative for depression sxs, pt report's her sxs are much better than previous-c ont to see psychiatri st for medication management , currently on prozac 80 mg daily, takes trazodone and propranolo l as needed-con t to see therapist on a regular basis-will cont to monitor Anxiety 58602361 F41.9 GAD7 = 6, indicative of mild anxiety sxs-plan as above Health Concerns Section Related Observation LastModified by Organization Detai ls LastModified Time None Recorded Concern Status LastModified by Organization Details LastModified Time None Recorded Advance Directives Directive None Recorded Payers Encounter Date Sequence Insurance Name Policy Number Policy Richards Covered Member ID Richards Member ID Guarantor Name 06/18/2022 1 [employer] Vinod Chi [id number] Vinod Chi 06/22/2022 1 [employer] Vinod Chi [id number] Vinod Chi 12/23/2022 1 [employer] Vinod Chi [id number] Vinod Chi 06/27/2023 1 [employer] Vinod Chi [id number] Vinod Chi 07/13/2024 1 [employer] Vinod Chi [id number] Vinod Chi Notes Date Note Type Note Provider Name and Address Organization Details Recorded Time 06/18/2022 text/html pt here for 17 y o PE, mom in [place] sees [facility] FINISH INSPECTOR, got nexplanon Dec 2021, is getting worked up for PCOS, was told by METAL FINISH INSPECTOR that she likely has PCOS sees derm for alopecia, uses topical steroid on scalp sees therapist every other week, Jules Koenig, virtually, reports her mood is better than previous + h/o elevated BP Max Livingston MD [address] [place] [address], [phone], [place] - [facility] 06/18/2022 23:29:31 06/27/2023 text/html pt here for 18 y o PE, here alone, arrived to office via uber went on medical leave from college due to depression in feb 2023, going back to college tomorrow, spring starts tomorrow at [employer] sees therapist every other week, Jules Koenig, virtually, reports her mood is better than in the fall sees psychiatrist - Dr. Chao, started prozac Mar 2023, is now on prozac 40 mg, sees psychiatrist virtually once a month, has passive SI, no intent sees [employer] FIN[employer] INSPECTOR, had a lot of BTB with nexplanon and slynd so stopped them, periods are irregular, is getting worked up for PCOS sees derm for alopecia, just started seeing a new weight control engineer, is planning on starting a new med soon, pt unsure which med, ? biologic saw cardiology for elevated cholesterol, emphasized lifestyle changes, plans to follow-up in 6 months, was referred to key account representative, Octavia Tsang, pt found this helpful, has made diet changes, tends to eat healthier when at school has been going to the gym, taking vitamins as recommended by key account representative - fish oils, magnesium + h/o elevated BP SH[facility] Sabiha Zacarias MD [address] [place] [address], [phone], [place] - [facility] 06/28/2023 09:14:07 07/13/2024 text/html pt here for 19 y o PE, BF in [place] doing very well this past year went on medical leave from college for 1 semester due to depression in feb 2023 sees a psychiatrist - Dr. Chao, started prozac Mar 2023, is now on prozac 80 mg, sees psychiatrist virtually once a month, no longer having any SI/HI, no self harm sees therapist every other week, Jules Koenig, virtually, reports her mood is stable sees [facility] FIN[employer] INSPECTOR, is on slynd, periods are more regular sees dermatology for alopecia, is on a new medication --> Olumiant, doing well on it, no bald patches sees cardiology at [facility] for elevated cholesterol and BP, emphasized lifestyle changes, has follow-up annually sees key account representative- Octavia Tsang Q 6 months, has made diet changes, tends to eat healthier when at school has been going to the gym, taking vitamins as recommended by key account representative - Vit C, D, E SH:living at schoolis a senior at [employer], has 2 semesters left, graduates Apr 2025+ BF x 3 months Health Note history gathered from:self Sharon Case [id number]( AFAB) [facility]+ Year Visit: General:Recent major illnesses or doctor visits:noneRecent or major stresses on pt or pt's family:noneConcerns :none School/Development: School performance:Piotrmiguel tements:I have at least one adult in my life who I know I can go to if I need help, I have a friend or a group of friends that I feel comfortable to be around, I help others, I am becoming more independent and I make more of my own decisions Sports & Activities:Physical ly active for >60min/day:noDenies while exercising: chest pain, concussion, dizziness, fainting, head injury, heat exhaustion/heat stroke, palpitations, loss of consciousness, seizure Inhaler use for asthma, cough, or sports:no Nutrition/Eliminati on:Variety of healthy foods received in diet:goodDrinks juice, chocolate milk, or soda:frequentlyEats take-out, fast food, or other restaurant food:<2 times/weekAdditiona l vitamins/supplement s:vitamin D, multivitamin Sleep:Daily sleep:8-10 hrs Puberty:Menarche: 8 Period questions/concerns: noneMenstruates >5 days:yesExcessive menstrual bleeding or blood loss:no Screening:Sees dentist every 6 months:yes No additional information shared Dyslipidemia Risk Assessment:Child has parent or grandparent who had stroke before 55 (male) or 65 (female):noChild has parent with elevated blood cholesterol or who is taking medications:YES Hunger Vital Signs:Within the past 12 months, we worried whether our food would run out before we got money to buy more:never trueWithin the past 12 months, the food we bought just didn't last and we didn't have money to get more:never true Tuberculosis Risk Assessment:Child exposed to someone with confirmed or suspected TB:noChild exposed to someone considered at high risk of TB:Juan Antonio has lived in a part of the world where TB is frequently diagnosed:noChild has a parent who was born in a high risk country or has household contact with a person from a high risk country:YESChild has history of travel to a high risk country:YES Max Livingston MD [address] [place] [address] [place], [address], [place] - [facility] 07/14/2024 07:34:47 OBGyn Episode No OBEpisode recorded.
--- OUTSIDE RECORDS SUMMARY | 2024-10-16 06:37 | XMS_ITS | Encounter Summary ---
Author Organization [facility] Address [address] [place], [place] [id number] Phone Care Team Providers Care Teachers' Assistant Name Role Phone Papi Meza MD Unavailable [phone] Kelley Wilkerson Unavailable [phone] Chavo Cronin MD Unavailable [phone] Enid Johnson NP Unavailable Sabiha Delgado MD Primary Care Provider [phone] Sabiha Delgado MD Primary Care Provider [phone] Encounter Details Date Type Department Care Team (Late st Contact Info) Description 12/30/2020 Transcribe Orders [facility] Specimen Processing [address] [place] [address] Mery Alvarado [address] [place] [address] [email or web address] Social History Tobacco Use Types Packs/Day Years Used Date Smoking Tobacco: Never Smokeless Tobacco: Never Comments No Sex and Gender Information Value Date Recorded Sex Assigned at Female 12/21/2021 10:46 AM EDT Legal Sex Female 7:10 PM EST Gender Identity Female 12/21/2021 10:46 AM EDT Sexual Orientation Bisexual 05/24/2024 8: 20 AM EST documented as of this encounter Plan of Treatment Upcoming Encounters Date Type Department Care Team (Late st Contact Info) Description 10/19/2024 2:30 PM EDT Office Visit [facility] [address] [facility], 5th [place] [address] Michele Koroma PA-C [address] [place] [address] 10/25/2024 3:30 PM EDT Office Visit [facility] [address] [place] [address] Chante Riddle, AQUACULTURE WORKER [address] [place] [address] 11/15/2024 10:30 AM EDT Office Visit [facility] [address] [place] [address] Chante Riddle, AQUACULTURE WORKER [address] [place] [address] documented as of this encounter Visit Diagnoses Not on filedocumented in this encounter Care Teams Teachers' Assistant Relationship Specialty Start Date End Date Sabiha Delgado MD [address] [place] [address] PCP - General Pediatrics 11/08/16 11/14/22 Sabiha Delgado MD [address] [place] [phone] PCP - General Pediatrics 11/15/22 Papi Meza MD [address] [place] [address] [email or web address] Historical LMR Provider 06/20/16 Kelley Wilkerson PA [address] [address] Historical LMR Provider 07/29/1606/06/21 Chavo Cronin MD [address] [place] [address] [email or web address] Historical LMR Provider 07/29/16 2 Enid Johnson NP [address] [place] [address] Historical LMR Provider 07/29/16 2 documented as of this encounter Additional Source Comments The information contained in this document represents components of the legal health record. It is not the complete legal health record.[facility]
--- OUTSIDE RECORDS SUMMARY | 2024-10-16 06:37 | XMS_ITS | Encounter Summary ---
Author Organization [facility] Address [address] [place] [address] Phone Care Team Providers Care Pulmonary Fellow Name Role Phone Papi Meza MD Unavailable [phone] Kelley Wilkerson Unavailable [phone] Chavo Cronin MD Unavailable [phone] Enid Johnson PRODUCTION WOOD CRAFTSMAN Unavailable Sabiha Delgado MD Primary Care Provider [phone] Sabiha Delgado MD Primary Care Provider [phone] Encounter Details Date Type Department Care Team (Late st Contact Info) Description 03/12/2020 Transcribe Orders [facility] Specimen Processing [address] [place] [address] Winnie Payan [address] [place] [address] [email or web address] Social History Tobacco Use Types Packs/Day Years [...] Description 10/19/2024 2:30 PM EDT Office Visit [facility] [address] [facility], 5th [place] [address] Michele Koroma PA-C [address] [place] [address] 10/25/2024 3:30 PM EDT Office Visit [facility] [address] [place] [address] Chante Riddle, PSYCH NURSE [address] [place] [address] 11/15/2024 10:30 AM EDT Office Visit [facility] [address] [place] [address] Chante Riddle, PSYCH NURSE [address] [place] [address] documented as of this encounter Visit Diagnoses Not on filedocumented in this encounter Care Teams Pulmonary Fellow Relationship Specialty Start Date End Date Saibha Delgado MD [address] [place] [address] PCP - General Pediatrics 11/08/16 11/14/22 Sabiha Delgado MD [address] [place] [phone] PCP - General Pediatrics 11/15/22 Papi Meza MD [address] [place] [address] [email or web address] Historical LMR Provider 06/20/16 Kelley Wilkerson PA [address] [address] Historical LMR Provider 07/29/1606/06/21 Chavo Cronin MD [address] [place] [address] [email or web address] Historical LMR Provider 07/29/16 2 Enid Johnson NP [address] [place] [address] Historical LMR Provider 07/29/16 2 documented as of this encounter Additional Source Comments The information contained in this document represents components of the legal health record. It is not the complete legal health record.[facility]
--- OUTSIDE RECORDS SUMMARY | 2024-10-16 06:37 | XMS_ITS | Encounter Summary ---
Author Organization [facility] Address [address] [place] [address] Phone Care Team Providers Care Boilermaker Loftsman Name Role Phone Papi Meza MD Unavailable [phone] Kelley Wilkerson Unavailable [phone] Chavo Cronin MD Unavailable [phone] Enid Johnson DIAMOND DIE POLISHER Unavailable Sabiha Delgado MD Primary Care Provider [phone] Sabiha Delgado MD Primary Care Provider [phone] Encounter Details Date Type Department Care Team (Late st Contact Info) Description 12/30/2020 Transcribe Orders [facility] Specimen Processing [address] [place], [place] [id number] Sabiha Delgado MD [address] [place] [address] Social History Tobacco Use Types Packs/Day Years [...] Description 10/19/2024 2:30 PM EDT Office Visit [facility] [address] [facility], [address]th [place] [address] Michele Koroma PA-C [address] [place] [phone] 10/25/2024 3:30 PM EDT Office Visit [facility] [address] [place] [address] Chante Riddle, GARNETT MACHINE OPERATOR HELPER [address] [place] [address] 11/15/2024 10:30 AM EDT Office Visit [facility] [address] [place] [address] Chante Riddle, GARNETT MACHINE OPERATOR HELPER [address] [place] [address] documented as of this encounter Visit Diagnoses Not on filedocumented in this encounter Care Teams Boilermaker Loftsman Relationship Specialty Start Date End Date Sabiha Delgado MD [address] [place] [address] PCP - General Pediatrics 11/08/16 11/14/22 Sabiha Delgado MD [address] [place] [phone] PCP - General Pediatrics 11/15/22 Papi Meza MD [address] [place] [address] Historical LMR Provider 06/20/16 Kelley Wilkerson PA [address] [place] [phone] [email or web address] Historical LMR Provider 07/29/1606/06/21 Chavo Cronin MD [address] [place] [phone] [email or web address] Historical LMR Provider 07/29/16 2 Enid Johnson NP [address] [place] [id number] Historical LMR Provider 07/29/16 2 documented as of this encounter Additional Source Comments The information contained in this document represents components of the legal health record. It is not the complete legal health record.[facility]
--- OUTSIDE RECORDS SUMMARY | 2024-10-16 06:37 | XMS_ITS | Clinical Summary ---
Author Organization [facility] Address [address] [place] [address] Phone Care Team Providers Care Snow Blower Name Role Phone Papi Meza MD Unavailable [phone] Sabiha Delgado MD Primary Care Provider [phone] Allergies Active Allergy Reactions Criticality Noted Date Comments Apple 10/15/2024 Fries 10/15/2024 Medications * This document contains information received from the source organization and may not represent a complete record from that organization. FLUoxetine (PROZAC) 40 MG capsule Take 40 mg by mouth daily. Taking two tablets daily total of 80 mg daily 08/25/19 24 Suspended drospirenone (SLYND) 4 mg tabletIndications :Encounter for other general counseling or advice on contraception Take 1 tablet (4 mg total) by mouth daily. 84 tablet 3 05/17/20 24 Suspended Additional Information Patient not taking.Reported on 10/15/2024 baricitinib (OLUMIANT) 2 mg tabletIndications :Alopecia areata Take 1 tablet (2 mg total) by mouth every morning. take 1 tablet by mouth 1 time a day 90 tablet 1 05/17/20 24 Suspended atorvastatin (LIPITOR) 20 MG tablet Take 1 tablet (20 mg total) by mouth daily. 90 tablet 2 08/24/19 25 Suspended ARIPiprazole (ABILIFY) 5 MG tablet Take 5 mg by mouth daily. 10/13/19 25 Suspended lamoTRIgine (LAMICTAL) 100 MG IMMEDIATE release tablet Take 100 mg by mouth daily. 10/14/19 25 Suspended lamoTRIgine (LAMICTAL) 25 MG IMMEDIATE release tablet Take 25 mg by mouth daily. 10/14/19 25 Suspended propranoloL (INDERAL) 20 MG immediate release tablet Take 1 tablet by mouth once as needed for anxiety. 08/03/19 25 Suspended traZODone (DESYREL) 50 MG tablet Take 50 mg by mouth as needed. 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 Assessment & Plan (11/15/2018 5:10 PM EDT): ??Epicanthal Folds no true esotropia seen myopia OD>OS, dtable Plan: Keep updated glasses rx Assessment & Plan (11/14/2017 5:04 PM EDT): ??Epicanthal Folds no true esotropia seen myopia OD>OS, increased OD Plan: Keep update glasses rx Assessment & Plan (11/08/2016 5:22 PM EDT): ??Epicanthal Folds no true esotropia seen myopia OD>OS, increased OD Plan: Update glasses rx Myopia 10/03/2012 Overview (07/20/2014): Myopia; Glasses 08/17/12 Dr Meza; 10/03/12 pt wears at [facility] only; Alopecia areata 03/07/2012 Overview (07/20/2014): Alopecia areata; treated by dermatology with topcial betameth juliana and ketoconazole shampoo; 10/03/12 using the shampoo once/wk and occa uses the cream, as bald spots have been gone over a mo; Overweight 03/02/2011 Overview (07/20/2014): Overweight; 03/07/12 note: advised to decr fats and sweets, increase exercise, continue dance, and limit screen time; gave [facility] nutrition book again and discussed cereal choices as an example in reading labels; 10/03/12 BMI %ile is up Uncoded H/O Abscess 05/05/2009 Overview (07/20/2014): H/O Abscess; Left; Plantar aspect left foot Uncoded H/O Verruca plantaris 05/05/2009 Overview (07/20/2014): H/O Verruca plantaris; Left; Plantar aspect left midfoot Immunizations Immunization Administration Dates Next Due BCG 2003 COVID-19 (Pre-03/21) Moderna Vaccine, mRNA, PF 05/27/2021 COVID-19 (Pre-03/21) Pfizer Vaccine, mRNA, PF 10/22/2020,10/22/2020,10/01/2020,10/01 DTaP, unspecified formulation 02/01/2008 ,08/10/2004,2003,04/27,2003 HPV9 01/30/2019,12/27/2017 Hepatitis B Adult 10/22/2022, 4,2003,06/01 Hepatitis B, unspecified formulation 02/02/2004, 2003,2003 Hib, unspecified formulation 05/11/2004, 2003,2003,03/23 Influenza Quadrivalent Intranasal 04/28/2015 Influenza Quadrivalent Prese rvative Free IM 04/08/2022,05/13/2021,03/11/2020,01/30,05/10/2017 Influenza Trivalent Preserva tive Free IM 03/15/2024,04/20/2013,03/07/2012 Influenza, Unspecified Formulation 03/28,09/25/2015,04/28/2015(Defer red: Parental Decision - 00),03/02/2011,02/25/2010,02/06/2009,1 ,04/03/2007,03/17/2006,2004,04/06/2004 MMR 03/17/2006, 6,05/11/2004,05/11 Meningococcal B, OMV (MenB-4C) 09/09/2020,2019 Meningococcal MCV4P 01/30/2019,12/23/2014 Pneumococcal conjugate, PCV 7 03/05/2004 Polio, Unspecified Formulation 8,05/11/2004,2003,04/27,2003 Tdap 12/23/2014,12/23/2014 Varicella 02/01/2008, 8,02/07/2004,02/06 Family History Medical History Relation Comments Hypertension Maternal Grandfather hypertensio n Ovarian cancer Maternal Grandmother ovarian can cer Type 2 Diabetes Paternal Grandfather diabetes me llitus type 2 Hypertension Paternal Grandmother hypertensio n Breast cancer Neg Hx Colon cancer Neg Hx Relation Status Comments Maternal Grandfather Maternal Grandmother (Age 36) Paternal Grandfather (Age 59) Paternal Grandmother Social History Tobacco Use Types Packs/Day Years Used Date Smoking Tobacco: Never Passive Smoke Exposure: Never Smokeless Tobacco: Never Tobacco Cessation:Counseling Given: Yes Alcohol Use Standard Drinks/Week Comments Not Currently 0 (1 standard drink = 0.6 oz pur e alcohol) Education Answer Date Recorded Are you interested in more education? Not on radha e 09/23/2022 Are you concerned about learning? Not on file 09/23/2022 No 09/23/2022 No 09/23/2022 Food Answer Date Recorded Within the past 6 months we worried whether our food would run out before we got money to buy more. Never True 10/15/2024 Within the past 6 months the food we bought just didn't last and we didn't have enough money to get more. Never True Residential Stability Answer Date Recor ded What is your housing situation today? I have dunia sing 10/15/2024 How many times have you move d in the past 12 months? Zero (I did not move) 10/15/2024 Paying for Meds Answer Date Recorded Do you have trouble paying for medicines? No 10/15/2024 Paying Utility Bills Answer Date Record ed Do you have trouble paying your heating or elect ricity bill? No 10/15/2024 Transportation Answer Date Recorded Has the lack of transportati on kept you from medical appointments or from getting medications? No 10/15/2024 Digital Access Answer Date Recorded No 10/15/2024 Yes 10/15/2024 Do you have reliable internet access at home? Ye s 10/15/2024 Do you have a device (e.g., phone, tablet, computer) with a working camera? Yes 10/15/2024 Intimate Partner Violence Answer Date R ecorded Are you denied basic needs s uch as food, clothing, or medical care? No 10/15/2024 In the past 12 months have y ou been in a relationship with a person who hurts, threatens, or tries to control you? No 10/15/2024 Are you denied basic needs s uch as food, clothing, or medical care? No 10/15/2024 In the past 12 months have y ou been in a relationship with a person who hurts, threatens, or tries to control you? No 10/15/2024 Comments No Sex and Gender Information Value Date Recorded Sex Assigned at Female 12/21/2021 10:46 AM EDT Legal Sex Female 7:10 PM EST Gender Identity Female 12/21/2021 10:46 AM EDT Sexual Orientation Bisexual 05/24/2024 8: 20 AM EST Last Filed Vital Signs Vital Sign Reading Time Taken Comments Blood Pressure 150/98 10/15/2024 9:29 PM EDT Pulse 81 10/15/2024 9:29 PM EDT Temperature 36.6 ??C (97.9 ??F) 10/15/2024 9:29 PM ED T Respiratory Rate 18 10/15/2024 9:29 PM EDT Oxygen Saturation 100% 10/15/2024 9:29 PM EDT Inhaled Oxygen Concentration - - Weight 92.9 kg (204 lb 12.8 oz) 10/15/2024 9:29 PM EDT Height 160 cm (5' 3 ) 10/15/2024 9:29 PM EDT Body Mass Index 36.28 10/15/2024 9:29 PM EDT Plan of Treatment Upcoming Encounters Date Type Department Care Team (Late st Contact Info) Description 10/19/2024 2:30 PM EDT Office Visit [facility] [address] [place] [address], 5th [place] [address] Michele Koroma PA-C [address] [place] [address] [phone] 10/25/2024 3:30 PM EDT Office Visit [facility] [address] [place] [address] Chante Riddle, MARKER HAND [address] [place] [address] 11/15/2024 10:30 AM EDT Office Visit [facility] English. [address] [place] [address] Chante Riddle, MARKER HAND [address] [place] [address] Health Maintenance Due Date Last Done Comments DEPRESSION SCREENING 2015 HIV ONE-TIME SCREENING (18-65 YEARS) 2021 PNEUMOCOCCAL VACCINES (0-49 years) (1 of 2 - PCV) 2022 03/05/2004 COVID-19 VACCINE (8 - Pfizer risk 2023- season) 2024 03/15/2024, 04/08/2022, 05/27/2021, Additional history exists Adult Td,Tdap Booster 12/23/2024 12/23/2014, 015 COMBINED DTaP,Tdap,Td (8 - Td or Tdap) 12/23/2024 12/23/2014, 12/23/2014, 02/01/2008, Additional history exists CHLAMYDIA SCREENING 07/13/2025 07/13/2024, 05/17/2024, 12/09/2021, Additional history exists SMOKING Hx and SMOKELESS TOBACCO SCREENING 10/15/2025 10/15/2024 PAP SMEAR 05/17/2027 05/17/2024 HIB VACCINES Completed 05/11/2004, 04/30, 2003, Additional history exists MMR VACCINES Completed 03/17/2006, 02/27, 05/11/2004, Additional history exists HPV VACCINES Completed 01/30/2019, 12/27/2017 MENINGOCOCCAL VACCINES (ACWY) Completed 01/30/2019, 12/23/2014 MENINGOCOCCAL VACCINES (B) Completed 09/09/2020, HEPATITIS C SCREENING Completed 06/10/2023 ADOLESCENT UNIVERSAL LIPID SCREENING Completed 05/24/2024, 12/20/2023, 06/27/2023, Additional history exists HEPATITIS A VACCINES Aged Out No long er eligible based on patient's age to complete this topic Medical Devices Not on file Procedures * The patient is currently admitted. The information in this section might not be complete until the patient is discharged. Procedure Name Priority Date/Time Associated Diagnosis Comments HCG, SERUM QUALITATIVE STAT 3:48 PM EDT SALICYLATES STAT 10/15/2024 3:48 PM EDT ACETAMINOPHEN LEVEL STAT 10/15/2024 3 :48 PM EDT ETHANOL, BLOOD STAT 10/15/2024 3:48 PM EDT MAGNESIUM STAT 10/15/2024 3:48 PM EDT LFTS (HEPATIC PANEL) STAT 10/15/2024 3:48 PM EDT BASIC METABOLIC PANEL STAT 10/15/2024 3:48 PM EDT CBC AND DIFFERENTIAL STAT 10/15/2024 3:48 PM EDT TOXICOLOGY SCREEN, URINE STAT 10/15/2024 2:59 PM EDT CHLAMYDIA TRACHOMATIS AND NEISSERIA GONORRHOEAE NUCLEIC ACID DETECTION Routine 07/13/2024 1:02 PM EST LIPID PANEL Routine 05/24/2024 8:21 AM EST Alopecia areata PAP TEST Routine 05/17/2024 10:44 AM EST HEPATITIS C ANTIBODY, QUALITATIVE Routine 06/10/2023 4:18 PM EST Alopecia areata Need for hepatitis C screening test from Last 3 Months or Most Recently Relevant to Health Maintenance Results * Ethanol, blood (10/15/2024 3:48 PM EDT) ETHANOL <10 <10 mg/dL [facility] Blood 10/15/2024 3:48 PM EDT 10/15/2024 3:50 PM EDT us Irvin Adkins PA-C LAB BLOOD ORDERABLES Final Re sult Performing Organization Address City/[facility]/ZIP Co de Phone Number [address] [address] * HCG, serum qualitative (10/15/2024 3:48 PM EDT) HCG, QUALITATIVE Negative Negative IU/L [facility] Blood 10/15/2024 3:48 PM EDT 10/15/2024 3:50 PM EDT us Fabian Lopez MD LAB BLOOD ORDERABLES Final Resu lt Performing Organization Address [facility]/ZIP Co de Phone Number [address] [address] * LFTs (hepatic panel) (10/15/2024 3:48 PM EDT) ALKALINE PHOSPHATASE 75 39 - 117 U/L [facility] TOTAL BILIRUBIN <0.2 0.0 - 1.2 mg/dL [facility] DIRECT BILIRUBIN <0.1 0.0 - 0.2 mg/dL [facility] Bilirubin (Indirect) NOT CALCULATED 0 - 1.5 mg/dL [facility] AST 27 0 - 37 U/L [facility] ALT 28 0 - 40 U/L [facility] TOTAL PROTEIN 7.6 6.5 - 8.0 g/dL [facility] ALBUMIN 4.2 3.9 - 4.8 g/dL [facility] GLOBULIN 3.4 1 - 4.8 g/dL [facility] A/G Ratio 1.24 1.00 - 4.80 RATIO [facility] Blood 10/15/2024 3:48 PM EDT 10/15/2024 3:50 PM EDT us Irvin Adkins PA-C LAB BLOOD ORDERABLES Final Re sult Performing Organization Address City/State/[facility] Co de Phone Number [facility] [address] [place] [address] * CBC and differential (10/15/2024 3:48 PM EDT) WBC 7.22 4.00 - 11.00 K/uL [facility] RBC 4.50 4.00 - 5.20 M/uL [facility] HGB 13.7 12.0 - 16.0 g/dL [facility] HCT 42.0 36.0 - 46.0 % [facility] PLT 400 150 - 450 K/uL [facility] MCV 93.3 80.0 - 100.0 fL [facility] MCH 30.4 27.0 - 31.0 pg [facility] MCHC 32.6 32.0 - 36.0 g/dL [facility] RDW 11.8 11.5 - 14.5 % [facility] MPV 8.7 8.4 - 12.0 fL [facility] NRBC 0.00 0.00 /100 WBCs [facility] ABSOLUTE NRBC 0.00 0.00 K/uL [facility] DIFF METHOD Auto [facility] NEUTS 65.1 48.0 - 76.0 % [facility] LYMPHS 26.7 18.0 - 41.0 % [facility] MONOS 5.1 4.0 - 11.0 % [facility] EOS 2.4 0.0 - 5.0 % [facility] BASOS 0.6 0.0 - 1.5 % [facility] Granulocytes, immature (%) 0.1 0.0 - 0.9 % [facility] ABSOLUTE NEUTS 4.70 1.92 - 7.60 K/uL [facility] ABSOLUTE LYMPHS 1.93 0.72 - 4.10 K/uL [facility] ABSOLUTE MONOS 0.37 0.16 - 1.10 K/uL [facility] ABSOLUTE EOS 0.17 0.00 - 0.50 K/uL [facility] ABSOLUTE BASOS 0.04 0.00 - 0.15 K/uL [facility] Granulocytes, immature 0.01 0.00 - 0.09 K/uL [facility] Blood 10/15/2024 3:48 PM EDT 10/15/2024 3:50 PM EDT Irvin SEBASTIAN-Wil LAB BLOOD ORDERABLES Final Re sult Performing Organization Address [facility]/ZIP Co de Phone Number [address] [address] * Magnesium (10/15/2024 3:48 PM EDT) MAGNESIUM 2.1 1.6 - 2.6 mg/dL [facility] Blood 10/15/2024 3:48 PM EDT 10/15/2024 3:50 PM EDT Irvin SEBASTIAN-C LAB BLOOD ORDERABLES Final Re sult Performing Organization Address [facility] Co de Phone Number [address] [address] * (ABNORMAL) Acetaminophen level (10/15/2024 3:48 PM EDT) ACETAMINOPHEN <5.0(L) 15.0 - 30.0 ug/mL [facility] Blood 10/15/2024 3:48 PM EDT 10/15/2024 3:50 PM EDT Irvin Adkins PA-C LAB BLOOD ORDERABLES Final Re sult Performing Organization Address City/[facility]/ZIP Co de Phone Number [address] [address] * (ABNORMAL) Salicylates (10/15/2024 3:48 PM EDT) SALICYLATES <0.3(L) 2.8 - 19.9 mg/dL [facility] Blood 10/15/2024 3:48 PM EDT 10/15/2024 3:50 PM EDT Irvin Adkins PA-C LAB BLOOD ORDERABLES Final Re sult Performing Organization Address [facility] de Phone Number [address] [address] * (ABNORMAL) Basic metabolic panel (10/15/2024 3:48 PM EDT) SODIUM 139 133 - 146 mmol/L [facility] CHLORIDE 103 96 - 108 mmol/L [facility] POTASSIUM 3.7 3.3 - 5.1 mmol/L [facility] CO2 25 21 - 35 mmol/L [facility] BUN 13 6 - 19 mg/dL [facility] CREATININE 0.80 0.5 - 1.5 mg/dL [facility] GLUCOSE 114(H) 70 - 99 mg/dL [facility] CALCIUM 9.3 8.4 - 10.3 mg/dL [facility] EGFR 107 >59 mL/min/1.7 3m2 [facility] Comment:Estimated glomerular filtration rate calculated using the CKD-EPI refit equation. ANION GAP 15 10 - 20 mmol/L [facility] Blood 10/15/2024 3:48 PM EDT 10/15/2024 3:50 PM EDT Irvin Adkins PA-C LAB BLOOD ORDERABLES Final Re sult Performing Organization Address City/[facility]/ZIP Co de Phone Number [address] [place] [address] * Toxicology screen, urine (10/15/2024 2:59 PM EDT) URINE CANNABINOIDS NONE DETECTED NONE DETECTED [facility] Comment:Cutoff: 50 ng/mL URINE COCAINE METAB NONE DETECTED NONE DETECTED [facility] Comment:Cutoff: 300 ng/mL URINE AMPHETAMINES NONE DETECTED NONE DETECTED [facility] Comment:Cutoff: 1000 ng/mL URINE METHADONE NONE DETECTED NONE DETECTED [facility] Comment:Cutoff: 300 ng/mL URINE OPIATES NONE DETECTED NONE DETECTED [facility] Comment:Cutoff: 300 ng/mL URINE PHENCYCLIDINE NONE DETECTED NONE DETECTED [facility] Comment:Cutoff: 25 ng/mL URINE OXYCODONE NONE DETECTED NONE DETECTED [facility] Comment:Cutoff: 300 ng/mL URINE BARBITURATES NONE DETECTED NONE DETECTED [facility] Comment:Cutoff: 200 ng/mL URINE BENZODIAZEPINE NONE DETECTED NONE DETECTED [facility] Comment:Cutoff: 200 ng/mL URINE BUPRENORPHINE NONE DETECTED NONE DETECTED [facility] Comment:Cutoff: 5 ng/mL Fentanyl, urine NONE DETECTED NONE DETECTED [facility] Comment: Cutoff: 5 ng/mL INTERPRETATION FOR TOXICOLOGY PANEL: These results are unconfirmed and should be used for Medical Treatment purposes only. Urine (Urine) 10/15/2024 2:5 9 PM EDT 10/15/2024 3:04 PM EDT us Irvin Adkins PA-C URINE ORDERABLES Final Result [address] [address] * Chlamydia trachomatis and Neisseria gonorrhoeae Nucleic Acid Amplification (07/13/2024 1:02 PM EST) Specimen Type URINE [facility] C.TRACHOMATIS, AMP Negative Negative [facility] N.Gonorrhoeae, AMP Negative Negative [facility] 07/13/2024 1:02 PM EST 07/13/2024 5:02 PM EST us Amy Cronin RIG MECHANIC NON CULTURE MICROBIOLOGY Fi nal Result Performing Organization Address [facility]/ZIP Co de Phone Number [address] [phone] * (ABNORMAL) Lipid panel (05/24/2024 8:21 AM EST) HDL 53 >39 mg/dL [facility] CHOLESTEROL 255(H) 0 - 200 mg/dL [facility] TRIGLYCERIDES 228(H) 0 - 150 mg/dL [facility] LDL 156(H) <130 mg/dL [facility] Comment: REFERENCE RANGE: Adult >= 18 years: - Desirable: ??<100 - Above desirable: 100-129 - Borderline high: 130-159 - High: 160-189 - Very High: >=190 Pediatric 2-17 years: - Acceptable: <110 - Borderline high: 110-129 - High: >=130 Reference ranges have not been established for patients that are less than 24 months of age. CARDIAC RISK RATIO 4.8 <5 N [facility] NON-HDL CHOLESTEROL 202 mg/dL [facility] Comment:Reference Range: The non-HDL Cholesterol value should not exceed the desired LDL-C by more than 30 mg/dl. Blood 05/24/2024 8:21 AM EST 05/24/2024 9:07 AM EST Chante Riddle MARKER HAND LAB BLOOD ORDERABLES Fin al Result [place] [id number] [phone] * Pap Test (05/17/2024 10:44 AM EST) 05/17/2024 10:4 4 AM EST 05/18/2024 10:44 AM EST Narrative SEE NARRATIVE - 05/26/2024 7:43 [place] [address] Service Center Technician: Geraldine Lebalnc MD ?? COMPUTER SYSTEMS ENGINEER Cytology Report FINAL DIAGNOSIS A. ??CERVICAL, LIQUID BASED SPECIMEN: SPECIMEN ADEQUACY: Satisfactory for evaluation; transformation zone present. INTERPRETATION: NEGATIVE FOR INTRAEPITHELIAL LESION OR MALIGNANCY. This specimen was analyzed by the automated ThinPrep Imaging System ([employer].) and the selected mcdonald were reviewed by a extract operator. Electronically Signed Out By: ??TEETEE Veronica ??(ASCP) The Pap test is a screening test primarily for squamous cancers and precursors and has associated false-negative and false-positive results. ??New technologies such as liquid-based preparations may decrease but will not eliminate all false-negative results. ??Regular sampling and follow-up of unexplained clinical signs and symptoms are recommended to minimize false negative results. CLINICAL HISTORY Date of Last Menstrual Period: ??04/29/2024 Contraceptive History: ??BCPs Treatment History: ??Hormone Therapy Other Clinical Conditions: ??Routine: Z01.419 SPECIMEN SOURCE A: CERVICAL, LIQUID BASED SPECIMEN GROSS DESCRIPTION One ThinPrep vial received from which a single Pap-stained slide was prepared. Processing and cytotech screening of this specimen performed at [facility], [address] [place] [address]. ?? Patient Name: ??ISABELLE CHI : ??2005 (Age: 19) Sex: ??F Institution: ??[facility] Location: ??[id number] Date of Collection: ??05/17/2024 Date of Reported: ??05/26/2024 07:43 Ordered By: ??Cristy Lam MD Copy To: us Cristy Lam MD CYTOLOGY ORDER LANDON Final Result SEE NARRATIVE * Hepatitis C antibody, qualitative (06/10/2023 4:18 PM EST) HCV ANTIBODY Negative Negative [facility] Blood 06/10/2023 4:18 PM EST 06/10/2023 5:57 PM EST Chante Riddle MARKER HAND LAB BLOOD ORDERABLES Fin al Result Performing Organization Address City/State/[facility] Co de Phone Number [address] [address], [facility] [phone] from Last 3 Months or Most Recently Relevant to Health Maintenance Insurance [employer] FAMILY [employer] [employer] [employer] [employer] [employer] [facility] [employer] [facility] [employer] [facility] [employer] [facility] [employer] [employer] [facility] [employer] [facility] [employer] [facility] [employer] [facility] FAMILY Care Teams Snow Blower Relationship Specialty Start Date End Date Sabiha Delgado MD [address] [place] [phone] PCP - General Pediatrics 11/15/22 Papi Meza MD [address] [place] [id number] Historical LMR Provider 06/20/16 Additional Source Comments The information contained in this document represents components of the legal health record. It is not the complete legal health record.[facility]
== END 2024-10-16 06:35 | disposition home or self-care (01) ==
LOC: HO.UMASIMG 06:34
PROVIDERS: Visit Provider Nurse Practitioner Women's Health
DX: Z13.89 Encounter for screening for other disorder (principal)